=== PATIENT | male | born 1980 | race African-American/Black ===

== ENCOUNTER 2016-11-28 19:55 | Emergency (ER) | payer OTHER ==
[~2016-11-28] VITALS: Ht 188 cm; Wt 79.7 kg
[~2016-11-28 19:55] MED LIST: ZOFRAN ODT4 MG PO
[2016-11-28] MEDS ORDERED: VENTOLIN HFA18 GM IH (22:15)
[2016-11-28 22:35] VITALS: BP 97/62
[2016-11-30 12:45] LABS: CHLAMYDIA TRACHOMATIS NEGATIVE; NEISSERIA GONORRHOEAE POSITIVE
== END 2016-11-28 22:36 | disposition home or self-care (01) ==
LOC: RME 19:55 → EME 19:55
PROVIDERS: Physician Assistant
DX: J21.9 Acute bronchiolitis, unspecified (principal); B34.9 Viral infection, unspecified; R36.9 Urethral discharge, unspecified; F17.200 Nicotine dependence, unspecified, uncomplicated
CPT/HCPCS: 71020; 87491; 87502; 87591; 94640; 94664; 99281; 99283; J0696

== ENCOUNTER 2018-07-01 10:50 | Emergency (ER) | payer OTHER ==
[~2018-07-01] VITALS: Ht 188 cm; Wt 71.4 kg
[~2018-07-01 10:50] MED LIST changes: +VENTOLIN HFA18 GM IH
[2018-07-01 13:17] VITALS: BP 127/82
== END 2018-07-01 13:27 | disposition home or self-care (01) ==
LOC: EME 10:50
DX: S40.022A Contusion of left upper arm, initial encounter (principal); M25.512 Pain in left shoulder; M25.522 Pain in left elbow; M25.562 Pain in left knee; V44.6XXA Car passenger injured in collision with heavy transport vehicle or bus in traffic accident, initial encounter; Y92.410 Unspecified street and highway as the place of occurrence of the external cause; F17.200 Nicotine dependence, unspecified, uncomplicated
CPT/HCPCS: 73030; 73080; 73090; 73564; 99281; 99283